=== PATIENT | female | born 1940 | race Two or more races ===

== ENCOUNTER 2019-06-25 11:45 | Inpatient (IN) | payer MEDICARE ==
[~2019-06-25] VITALS: Ht 177.8 cm; Wt 59.0 kg
[2019-06-25] MEDS ORDERED: SODIUM CHLORIDE 0.9% 500 ML IV ONE (13:00)
[2019-06-25] MEDS ORDERED: MORPHINE SULFATE 4 MG/ML CPJ (NOT FOR IM USE) IV ONE (13:15)
[2019-06-25] MEDS ORDERED: ONDANSETRON HCL 4MG/2ML INJ IV ONE (13:15)
[2019-06-25 13:31] LABS: HEMATOCRIT. 48.4 % (36.0-48.0); HEMOGLOBIN. 16.3 g/dL (12.0-16.0); MEAN CORPUSCULAR HEMOGLOBIN 28.8 pg (28.0-32.0); MEAN CORPUSCULAR VOLUME 85.4 fL (81.0-99.0); MEAN PLATELET VOLUME 12.3 fl (7.4-10.4); PLATELET 202 x1000/uL (130-400); RED BLOOD CELL COUNT 5.67 mill/uL (4.2-5.4); RED CELL DISTRIBUTION WIDTH 13.4 % (11.6-14.6)
[2019-06-25 13:37] LABS: CHLORIDE 93 mEq/L (98-107)
[2019-06-25 13:57] LABS: PLATELET ESTIMATE NORMAL
[2019-06-25] MEDS ORDERED: PIPERACILLIN/TAZ 3.375G PREMIX 50 ML IV NR (14:15)
[2019-06-25 14:33] LABS: INR 1.2; PROTHROMBIN TIME 12.2 sec (9.6-11.0)
[2019-06-25 15:16] LABS: CLARITY URINE TURBID (CLEAR); COLOR URINE ORANGE (YELLOW); KETONES URINE NEGATIVE (NEGATIVE); LEUKOCYTE ESTERASE URINE 1+ (NEGATIVE); NITRITE URINE POSITIVE (NEGATIVE); OCCULT BLOOD URINE 3+ (NEGATIVE); PROTEIN URINE 3+ (NEGATIVE); SPECIFIC GRAVITY URINE 1.032 (1.005-1.030)
[2019-06-25] MEDS ORDERED: AMLO5TAB88 MT (18:34)
[2019-06-25] MEDS ORDERED: METF-414 MT (18:35)
[2019-06-25] MEDS ORDERED: METO-396 MT (18:37)
[2019-06-25 19:02] VITALS: BP 137/83
[2019-06-25] MEDS ORDERED: DEXTROSE 50% WATER 50ML SYRINGE IV PRN (19:45)
[2019-06-25] MEDS ORDERED: ACETAMINOPHEN 325MG TABLET PO PRN (19:45)
[2019-06-25] MEDS ORDERED: CEFTRIAXONE 1 G PREMIX 50 ML IV ONE (19:45)
[2019-06-25 20:00] VITALS: BP 139/87
[2019-06-25] MEDS ORDERED: CEFTRIAXONE 1 G PREMIX 50 ML IV SCH (21:00)
[2019-06-25] MEDS ORDERED: SODIUM CHLORIDE 0.45% 1,000 ML IV SCH (21:00)
[2019-06-25] MEDS: HYDROCODONE/ACETAMINOPHEN 5/325MG TABLET PO PRN (21:28)
[2019-06-25] MEDS: BLOOD SUGAR DIAGNOSTIC STRIP TEST SCH (21:38)
[2019-06-25] MEDS: INSULIN LISPRO 100 UNITS/ML SUBCUT SCH (21:45)
[2019-06-26] VITALS: BP_SYST 127; BP_SYST 142; BP_DIAS 65; BP_DIAS 84
[2019-06-26 04:00] VITALS: BP 126/74
[2019-06-26] MEDS: HYDROCODONE/ACETAMINOPHEN 5/325MG TABLET PO PRN (05:17)
[2019-06-26 06:10] LABS: HEMATOCRIT. 42.7 % (36.0-48.0); HEMOGLOBIN. 14.4 g/dL (12.0-16.0); MEAN CORPUSCULAR HEMOGLOBIN 28.5 pg (28.0-32.0); MEAN CORPUSCULAR VOLUME 84.4 fL (81.0-99.0); MEAN PLATELET VOLUME 11.5 fl (7.4-10.4); PLATELET 167 x1000/uL (130-400); RED BLOOD CELL COUNT 5.06 mill/uL (4.2-5.4); RED CELL DISTRIBUTION WIDTH 13.7 % (11.6-14.6)
[2019-06-26 06:18] LABS: CHLORIDE 99 mEq/L (98-107)
[2019-06-26] MEDS: BLOOD SUGAR DIAGNOSTIC STRIP TEST SCH ×4 (06:51→20:33)
[2019-06-26 08:00] VITALS: BP 117/70
[2019-06-26] MEDS: METOPROLOL TARTRATE 25MG TABLET PO SCH (08:48)
[2019-06-26] MEDS: INSULIN LISPRO 100 UNITS/ML SUBCUT SCH ×4 (08:48→20:46)
[2019-06-26] MEDS: AMLODIPINE 5MG TABLET PO SCH (08:48)
[2019-06-26] MEDS ORDERED: KCL 20MEQ/100ML PREMIX 100 ML IV NR (09:00)
[2019-06-26 12:00] VITALS: BP 132/72
[2019-06-26 12:12] LABS: PLATELET ESTIMATE NORMAL
[2019-06-26] MEDS: ACETAMINOPHEN 500MG TABLET PO PRN (12:46)
[2019-06-26 16:00] VITALS: BP 112/68
[2019-06-26 16:34] LABS: CREATINE KINASE 103 IU/L (26-192); T4 FREE 1.68 ng/dL (0.76-1.46)
[2019-06-26 16:35] LABS: CREATINE KINASE MB FRACTION 1.9 ng/mL (0.5-3.6)
[2019-06-26 20:00] VITALS: BP 123/69
[2019-06-26] MEDS: DEXT 5%/0.45% NACL KCL 20MEQ/L 1,000 ML IV SCH (20:32)
[2019-06-26] MEDS: CEFTRIAXONE 1 G PREMIX 50 ML IV SCH (20:33)
[2019-06-27] VITALS: BP 122/62
[2019-06-27 00:33] LABS: CREATINE KINASE 69 IU/L (26-192); CREATINE KINASE MB FRACTION 1.3 ng/mL (0.5-3.6)
[2019-06-27 04:00] VITALS: BP 134/64
[2019-06-27] MEDS: BLOOD SUGAR DIAGNOSTIC STRIP TEST SCH ×4 (06:45→21:52)
[2019-06-27] MEDS: ACETAMINOPHEN 500MG TABLET PO PRN (06:45)
[2019-06-27 07:50] LABS: BASOPHILS % 0.1 % (0.0-2.0); EOSINOPHILS % 0.4 % (0.0-5.0); HEMATOCRIT. 43.8 % (36.0-48.0); HEMOGLOBIN. 14.7 g/dL (12.0-16.0); LYMPHOCYTES % 9.2 % (20.0-50.0); MEAN CORPUSCULAR HEMOGLOBIN 28.5 pg (28.0-32.0); MEAN PLATELET VOLUME 11.6 fl (7.4-10.4); MONOCYTES % 8.9 % (2.0-8.0); NEUTROPHILS % 81.4 % (40.0-76.0); PLATELET 194 x1000/uL (130-400); RED BLOOD CELL COUNT 5.15 mill/uL (4.2-5.4); RED CELL DISTRIBUTION WIDTH 13.7 % (11.6-14.6)
[2019-06-27] MEDS: INSULIN LISPRO 100 UNITS/ML SUBCUT SCH ×4 (07:50→22:22)
[2019-06-27 08:00] VITALS: BP 114/68
[2019-06-27] MEDS: CEFTRIAXONE 1 G PREMIX 50 ML IV SCH ×2 (08:13→20:35)
[2019-06-27] MEDS: METOPROLOL TARTRATE 25MG TABLET PO SCH (08:13)
[2019-06-27] MEDS: AMLODIPINE 5MG TABLET PO SCH (08:19)
[2019-06-27] MEDS: HYDROCODONE/ACETAMINOPHEN 5/325MG TABLET PO PRN (09:06)
[2019-06-27 09:44] LABS: CHLORIDE 96 mEq/L (98-107)
[2019-06-27 09:57] LABS: CREATINE KINASE 52 IU/L (26-192)
[2019-06-27 10:00] LABS: CREATINE KINASE MB FRACTION < 1.0 ng/mL (0.5-3.6)
[2019-06-27 12:00] VITALS: BP 127/82
[2019-06-27] MEDS: DEXT 5%/0.45% NACL KCL 20MEQ/L 1,000 ML IV SCH (13:00)
[2019-06-27 16:00] VITALS: BP 140/64
[2019-06-27] MEDS ORDERED: POTASSIUM CHLORIDE 20MEQ TABLET SR PO NR (19:45)
[2019-06-27 20:00] VITALS: BP 131/72
[2019-06-28] VITALS: BP 134/74
[2019-06-28] MEDS: DEXT 5%/0.45% NACL KCL 20MEQ/L 1,000 ML IV SCH ×2 (00:19→21:38)
[2019-06-28 04:00] VITALS: BP 121/68
[2019-06-28] MEDS: BLOOD SUGAR DIAGNOSTIC STRIP TEST SCH ×4 (06:54→21:00)
[2019-06-28] MEDS: INSULIN LISPRO 100 UNITS/ML SUBCUT SCH ×4 (07:50→21:00)
[2019-06-28 08:00] VITALS: BP 143/68
[2019-06-28] MEDS: CEFTRIAXONE 1 G PREMIX 50 ML IV SCH (09:38)
[2019-06-28] MEDS: METOPROLOL TARTRATE 25MG TABLET PO SCH (09:38)
[2019-06-28] MEDS: AMLODIPINE 5MG TABLET PO SCH (09:38)
[2019-06-28] MEDS ORDERED: LEVOFLOXACIN 500MG TABLET PO SCH (11:00)
[2019-06-28 12:00] VITALS: BP 129/66
[2019-06-28 13:21] LABS: BASOPHILS % 0.3 % (0.0-2.0); EOSINOPHILS % 2.9 % (0.0-5.0); HEMOGLOBIN. 12.5 g/dL (12.0-16.0); LYMPHOCYTES % 13.5 % (20.0-50.0); MEAN CORPUSCULAR HEMOGLOBIN 28.8 pg (28.0-32.0); MEAN CORPUSCULAR VOLUME 85.4 fL (81.0-99.0); MEAN PLATELET VOLUME 10.1 fl (7.4-10.4); MONOCYTES % 12.1 % (2.0-8.0); NEUTROPHILS % 71.2 % (40.0-76.0); PLATELET 194 x1000/uL (130-400); RED BLOOD CELL COUNT 4.34 mill/uL (4.2-5.4); RED CELL DISTRIBUTION WIDTH 13.8 % (11.6-14.6)
[2019-06-28 16:00] VITALS: BP 124/62
[2019-06-28] MEDS: LEVOFLOXACIN 500MG TABLET PO SCH (16:25)
[2019-06-28 20:00] VITALS: BP 133/60
[2019-06-29] VITALS: BP 132/66
[2019-06-29 04:00] VITALS: BP 128/68
[2019-06-29] MEDS: BLOOD SUGAR DIAGNOSTIC STRIP TEST SCH ×2 (07:47→12:41)
[2019-06-29] MEDS: INSULIN LISPRO 100 UNITS/ML SUBCUT SCH ×2 (07:47→12:41)
[2019-06-29 07:49] LABS: CHLORIDE 105 mEq/L (98-107)
[2019-06-29 08:41] LABS: BASOPHILS % 0.4 % (0.0-2.0); EOSINOPHILS % 4.6 % (0.0-5.0); HEMATOCRIT. 37.6 % (36.0-48.0); HEMOGLOBIN. 12.6 g/dL (12.0-16.0); LYMPHOCYTES % 14.4 % (20.0-50.0); MEAN CORPUSCULAR HEMOGLOBIN 28.8 pg (28.0-32.0); MEAN CORPUSCULAR VOLUME 85.6 fL (81.0-99.0); MEAN PLATELET VOLUME 9.9 fl (7.4-10.4); NEUTROPHILS % 68.6 % (40.0-76.0); PLATELET 185 x1000/uL (130-400); RED BLOOD CELL COUNT 4.39 mill/uL (4.2-5.4); RED CELL DISTRIBUTION WIDTH 13.5 % (11.6-14.6)
[2019-06-29] MEDS: METOPROLOL TARTRATE 25MG TABLET PO SCH (09:02)
[2019-06-29] MEDS: AMLODIPINE 5MG TABLET PO SCH (09:02)
[2019-06-29] MEDS: LEVOFLOXACIN 500MG TABLET PO SCH (10:26)
[2019-06-29 14:15] VITALS: BP 135/74
== END 2019-06-29 14:45 | disposition home or self-care (01) ==
LOC: ER 11:45 → 6EST 15:56 → ENRESERV 17:13
PROVIDERS: ADMIT Internal Medicine; ATTEND Internal Medicine
DX: K80.00 Calculus of gallbladder with acute cholecystitis without obstruction (principal); E11.65 Type 2 diabetes mellitus with hyperglycemia; D64.9 Anemia, unspecified; E87.1 Hypo-osmolality and hyponatremia; E86.0 Dehydration; K82.9 Disease of gallbladder, unspecified; E78.5 Hyperlipidemia, unspecified; I10 Essential (primary) hypertension; I25.10 Atherosclerotic heart disease of native coronary artery without angina pectoris; I49.3 Ventricular premature depolarization; D72.825 Bandemia
CPT/HCPCS: 36415; 74176; 80048; 80053; 80061; 81003; 82550; 82553; 82962; 83036; 83880; 84439; 84443; 84484; 85025; 85379; 93005; 93306; 99285; J0696; J1815; J2270; J2405; J2543; J3480; J7040